=== PATIENT | female | born 1955 | race Caucasian/White ===

== ENCOUNTER 2016-08-03 18:24 | Emergency (ER) | payer OTHER ==
[~2016-08-03] VITALS: Ht 165.1 cm; Wt 99.6 kg
[2016-08-03 19:41] LABS: EOSINOPHIL (%) 1.8 % (0-5); EOSINOPHIL COUNT 0.1 K/uL (0-0.3); HEMATOCRIT 38.3 % (36.0-46.0); IMMATURE GRANULOCYTE (%) 0.3 % (0.0-0.7); INSTRUMENT ABS NEUTROPHIL CT 5.4 K/uL; LYMPHOCYTE COUNT 1.5 K/uL (1.0-2.8); MCH 26.6 PG (29.0-34.0); MCHC 31.9 G/DL (30.0-36.0); MCV 83.6 FL (83-99); MEAN PLAT.VOLUME 10.1 uM^3 (9.5-12.4); MONOCYTE (%) 6.2 % (3-12); MONOCYTE COUNT 0.5 K/uL (0-0.8); NEUTROPHIL (%) 71.1 % (45-76); NEUTROPHIL COUNT 5.4 K/uL (1.8-6.4); PLATELET COUNT 255 K/uL (156-360); RBC DIS.WIDTH-CV 13.2 % (11.8-14.6); RBC DIS.WIDTH-SD 40.7 % (39-53); RED BLOOD COUNT 4.58 M/uL (3.80-5.20); WHITE BLOOD COUNT 7.6 K/uL (4.1-10.2)
[2016-08-03 19:51] LABS: CHLORIDE 106 mEq/L (99-109)
[2016-08-03 19:52] LABS: POTASSIUM 3.7 mEq/L (3.7-5.4); SODIUM 139 mEq/L (136-147)
[2016-08-03 19:54] LABS: GLUCOSE 128 mg/dL (70-99)
[2016-08-03 19:55] LABS: ANION GAP 10 MEQ/L (2-14)
[2016-08-03 19:56] LABS: TOTAL BILIRUBIN 0.9 mg/dL (0.0-1.0)
[2016-08-03 19:57] LABS: ALKALINE PHOSPHATASE 83 IU/L (3-129)
[2016-08-03 19:58] LABS: GFR ESTIMATE (CALCULATED) > 59 mL/min/
[2016-08-03 19:59] LABS: UREA NITROGEN (BUN) 12 mg/dL (9-23)
[2016-08-03 20:04] LABS: TROP-I INTERPRETATION NEGATIVE; TROPONIN-I < 0.01 ng/mL (0.0-0.30)
[2016-08-03 21:11] LABS: ADD MIUA? NO; BILIRUBIN NEGATIVE; BLOOD NEGATIVE; COLOR YELLOW ((YELLOW)); GLUCOSE (STRIP) NEGATIVE; KETONES 5; LEUKOCYTES NEGATIVE; NITRITE NEGATIVE; PROTEIN (STRIP) NEGATIVE; SPECIFIC GRAVITY 1.013 (1.000-1.030); UCUL ADDED? NO; UROBILINOGEN 0.2 MG/DL (0.2-1.0)
[2016-08-03] MEDS ORDERED: ANTIVERT25 MG PO (22:52)
[2016-08-03] MEDS ORDERED: VALIUM2 MG PO (22:52)
[2016-08-03] MEDS ORDERED: ZOFRAN ODT4 MG PO (22:56)
[2016-08-03 23:14] VITALS: BP 144/97
== END 2016-08-03 23:30 | disposition home or self-care (01) ==
LOC: EME → EDBD 18:24 → EME 23:30
PROVIDERS: Emergency Medicine
DX: R42 Dizziness and giddiness (principal); Z87.891 Personal history of nicotine dependence
CPT/HCPCS: 71020; 80053; 81003; 84484; 85025; 93005; 99281; 99285; J3360; J7030